=== PATIENT | male | born 1975 | race African-American/Black ===

== ENCOUNTER 2017-03-15 18:29 | Emergency (ER) | payer OTHER ==
[~2017-03-15] VITALS: Ht 177.8 cm; Wt 63.5 kg
[2017-03-15 19:31] LABS: ABSOLUTE NEUTROPHILS 5.4 thou/uL (1.4-8.2); BASOPHILS 0.9 % (0.0-2.0); HEMATOCRIT 33.5 % (42.0-52.0); HEMOGLOBIN 10.9 gm/dL (14.0-18.0); LYMPHOCYTES 26.9 % (24.0-44.0); MCH 23.4 pg (26.0-34.0); MCHC 32.6 g/dL (28.0-37.0); MCV 71.9 fL (80.0-100.0); PLATELET COUNT 571 thou/uL (150-400); POLYS 61.2 % (36.0-66.0); RBC 4.65 mil/uL (4.50-6.00); RDW 20.3 % (10.5-14.5); WBC 8.7 thou/uL (4.0-11.0)
[2017-03-15 19:35] LABS: MANUAL DIFF NO
[2017-03-15 19:50] LABS: CALCIUM 9.1 mg/dL (8.5-10.1); CREATININE 0.7 mg/dL (0.7-1.3); POTASSIUM 3.7 mmol/L (3.5-5.1)
[2017-03-15 19:56] LABS: ANISOCYTOSIS 2+; HYPOCHROMASIA 1+; MICROCYTES 1+; PLATELET ESTIMATE INCREASED; TARGET CELLS OCCASIONAL
[2017-03-15 20:30] VITALS: BP 107/63
== END 2017-03-15 20:30 | disposition home or self-care (01) ==
LOC: ER 18:29
PROVIDERS: Physician Assistant
DX: L89.159 Pressure ulcer of sacral region, unspecified stage (principal); J45.909 Unspecified asthma, uncomplicated; F10.99 Alcohol use, unspecified with unspecified alcohol-induced disorder; Z86.69 Personal history of other diseases of the nervous system and sense organs; Z87.891 Personal history of nicotine dependence